=== PATIENT | female | born 1955 | race Caucasian/White ===

== ENCOUNTER 2017-11-30 08:20 | Outpatient (CLI) | payer MEDICAID ==
[2017-11-30 12:18] LABS: ALKALINE PHOSPHATASE 91 IU/L (42-121); ALT ALANINE AMINOTRANSFERASE 16 IU/L (10-60); AST ASPARTATE AMINOTRANSFERASE 34 IU/L (10-42); BILIRUBIN,TOTAL 0.9 mg/dL (0.2-1.0); BUN - BLOOD UREA NITROGEN 6 mg/dL (6-20); CALCIUM 9.3 mg/dL (8.5-10.3); CARBON DIOXIDE - CO2 27 mmol/L (21-32); CHLORIDE 94 mmol/L (101-111); CHOL/HDL RATIO 1.8 (<4.4); CHOLESTEROL 218 mg/dL; CREATININE 0.6 mg/dL (0.4-1.0); GFR - MDRD 102 (>89); GLUCOSE 112 mg/dL (70-100); HDL CHOLESTEROL 118 mg/dL; LDL CHOLESTEROL,CALCULATED 91 mg/dL; LDL/HDL RATIO 0.8 (<4.4); SODIUM 131 mmol/L (135-145); TOTAL PROTEIN 7.9 g/dL (6.7-8.2); VLDL CHOLESTEROL 9 mg/dL
[2017-11-30 12:27] LABS: HEMOGLOBIN A1C 0.49 g/dL; HEMOGLOBIN A1C % 4.8 % (4.6-6.2)
[2017-12-01 13:32] LABS: HEPATITIS C ANTIBODY NON-REACTIVE (NON-REACTIVE)
== END 2017-11-30 08:21 | disposition home or self-care (01) ==
LOC: LAB.F 08:20
PROVIDERS: ATTEND Nurse Practitioner Family
DX: Z13.1 Encounter for screening for diabetes mellitus (principal); Z13.220 Encounter for screening for lipoid disorders; Z13.29 Encounter for screening for other suspected endocrine disorder; Z78.9 Other specified health status; F17.210 Nicotine dependence, cigarettes, uncomplicated
CPT/HCPCS: 36415; 80053; 80061; 83036; 83721; 84443; 86803

== ENCOUNTER 2017-12-21 14:40 | Outpatient (CLI) | payer MEDICAID | END 2017-12-21 14:41 | disposition home or self-care (01) | LOC: RT.S 14:40 | PROVIDERS: ATTEND Nurse Practitioner Family | DX: R07.89 Other chest pain (principal); I10 Essential (primary) hypertension | CPT/HCPCS: 93005 ==

== ENCOUNTER 2018-01-14 07:34 | Outpatient (CLI) | payer MEDICAID ==
[2018-01-14 17:48] VITALS: BP 134/80
--- NOTE | 2018-01-15 09:17 | CARDIAC PROCEDURE NOTE ---
DATE OF SERVICE: 01/14/2018 ETT Provider: KRISTIN Felipe Patient Name: Lyndsey Alford : 1955 Date of Service: 01/14/2018 PRIMARY CARE PHYSICIAN: KRISTIN Felipe. PROCEDURE: Cardiac treadmill stress test. PROCEDURE SYMPTOMS: Atypical chest pain, Hypertension. CARDIAC RISK FACTORS: Age, Hypertension, Active smoker. CLINICAL HISTORY: A 62-year-old female without known coronary artery disease. She has had no previous cardiac procedures. She has asthma and COPD. She reports having no chest pain since she was seen in the office. She is chronically short of breath with exertion. Initial resting VS: 148/84, HR 118 (at rest), Ht: 61 inches, Wt: 95.6 lbs., BMI 17.9. PROCEDURE AND FINDINGS: Patient identity and date verified. Consent signed. The patient performed treadmill exercise using a Reuben protocol, completing 3 minutes, 46 seconds, and completing an estimated workload of 5.55 metabolic equivalents. Maximal blood pressure during exercise was 132/72, With maximal HR of 176 beats per minute or 110% of maximal predicted heart rate for age. The blood pressure response to exercise was fairly flat. The patient stopped because of getting out of air. She recovered her breath quickly and had no wheezing. The resting ECG demonstrated sinus tachycardia with no abnormalities. Maximum ST-segment depression was less than 0.5 mm and upsloping. There was no ectopy. FINAL IMPRESSIONS: TEST QUALITY: Fair due to exercise artifact. 1. Negative stress electrocardiogram for ischemia by electrocardiographic criteria. 2. Negative stress test clinically for angina. 3. Predicted sedentary exercise time: 5 minutes, 45 seconds. Her Asthma/COPD and resting tachycardia may be limitations. 4. No ectopy. 5. No contra-indication for cataract surgery. 6. The patient has been started on lisinopril, which seems to be doing a good job controlling her blood pressure. cc: Osvaldo Garcias MD TD: 01/14/2018 19:59 MTDD
--- NOTE | 2018-01-15 10:14 | XRAY Report ---
CARDIOVASCULAR TREADMILL TEST There was no imaging performed for this exam. Procedure notes and results available in the EMR. TOMER
== END 2018-01-14 07:35 | disposition home or self-care (01) ==
LOC: DI 07:34
PROVIDERS: ATTEND Nurse Practitioner Family
DX: R07.89 Other chest pain (principal); I10 Essential (primary) hypertension; F17.200 Nicotine dependence, unspecified, uncomplicated
CPT/HCPCS: 93016; 93017; 93018

== ENCOUNTER 2019-01-17 08:00 | Outpatient (CLI) | payer MEDICAID ==
[2019-01-17 10:48] LABS: EOSINOPHILS # (AUTO) 0.1 10^3/uL (0.0-0.7); EOSINOPHILS % (AUTO) 3.2 %; HGB - HEMOGLOBIN 15.1 g/dL (12.0-16.0); LYMPHOCYTES # (AUTO) 1.8 10^3/uL (1.5-3.5); LYMPHOCYTES % (AUTO) 49.4 %; MEAN CORPUSCULAR HEMOGLOBIN 35.7 pg (27.0-31.0); MEAN CORPUSCULAR HGB CONC 34.7 g/dL (32.0-36.0); MEAN PLATELET VOLUME 8.8 fL (7.9-10.8); MONOCYTES # (AUTO) 0.5 10^3/uL (0.0-1.0); MONOCYTES % (AUTO) 12.9 %; NEUTROPHILS # (AUTO) 1.2 10^3/uL (1.5-6.6); NEUTROPHILS % (AUTO) 33.5 %; PLT - PLATELET COUNT 172 10^3/uL (130-450); RED BLOOD COUNT 4.22 10^6/uL (4.20-5.40); RED CELL DISTRIBUTION WIDTH 13.2 % (12.0-15.0); WHITE BLOOD COUNT 3.7 x10^3/uL (4.8-10.8)
[2019-01-17 11:02] LABS: ALBUMIN/GLOBULIN RATIO 1.2 (1.0-2.2); ALKALINE PHOSPHATASE 64 IU/L (42-121); ALT ALANINE AMINOTRANSFERASE 30 IU/L (10-60); AST ASPARTATE AMINOTRANSFERASE 46 IU/L (10-42); BILIRUBIN,TOTAL 1.1 mg/dL (0.2-1.0); BUN - BLOOD UREA NITROGEN 7 mg/dL (6-20); CALCIUM 9.6 mg/dL (8.5-10.3); CARBON DIOXIDE - CO2 29 mmol/L (21-32); CHLORIDE 94 mmol/L (101-111); CHOL/HDL RATIO 1.9 (<4.4); CHOLESTEROL 231 mg/dL; CREATININE 0.5 mg/dL (0.4-1.0); GFR - MDRD 125 (>89); GLUCOSE 104 mg/dL (70-100); HDL CHOLESTEROL 122 mg/dL; LDL CHOLESTEROL,CALCULATED 101 mg/dL; LDL/HDL RATIO 0.8 (<4.4); SODIUM 132 mmol/L (135-145); TOTAL PROTEIN 7.4 g/dL (6.7-8.2); VLDL CHOLESTEROL 8 mg/dL
[2019-01-17 11:26] LABS: HB2 TOTAL 16.3 g/dL; HEMOGLOBIN A1C 0.45 g/dL; HEMOGLOBIN A1C % 4.7 % (4.6-6.2)
== END 2019-01-17 23:59 | disposition home or self-care (01) ==
LOC: LAB.S 08:00
PROVIDERS: ATTEND Nurse Practitioner Family
DX: Z13.220 Encounter for screening for lipoid disorders (principal); Z13.1 Encounter for screening for diabetes mellitus; I10 Essential (primary) hypertension
CPT/HCPCS: 36415; 80050; 80061; 83036; 83721

== ENCOUNTER 2019-03-05 08:53 | Outpatient (CLI) | payer MEDICAID ==
[2019-03-05] MEDS ORDERED: ALBUTEROL NEB 2.5 MG/3 ML INH SCH (09:00)
== END 2019-03-05 08:54 | disposition home or self-care (01) ==
LOC: RT 08:53
PROVIDERS: ATTEND Nurse Practitioner
DX: J44.9 Chronic obstructive pulmonary disease, unspecified (principal)
CPT/HCPCS: 94060; 94729

== ENCOUNTER 2019-08-08 10:52 | Outpatient (CLI) | payer OTHER, MEDICAID ==
--- NOTE | 2019-08-08 12:55 | XRAY Report ---
Reason: COPD, HBP Procedure Date: 08/08/2019 Accession Number: [id number] / [id number] Procedure: XRS - Chest 2 View X-Ray CPT Code: 06226 Final Report FULL RESULT: EXAM: CHEST RADIOGRAPHY EXAM DATE: 08/08/2019 11:00 AM. CLINICAL HISTORY: Chronic obstructive pulmonary disease, high blood pressure. COMPARISON: CHEST 2 VIEW PA/LAT 03/30/2014 11:44 AM. TECHNIQUE: 2 views. FINDINGS: Lungs/Pleura: No focal opacities evident. No pleural effusion. No pneumothorax. High lung volumes are redemonstrated with flattening of diaphragms, suggestive of obstructive lung disease. Mediastinum: Heart and mediastinal contours are unremarkable. Other: None. IMPRESSION: High lung volumes consistent with provided history of COPD. RADIA
== END 2019-08-08 10:53 | disposition home or self-care (01) ==
LOC: DI.S 10:52
DX: R07.9 Chest pain, unspecified (principal)
CPT/HCPCS: 71046

== ENCOUNTER 2019-09-06 13:33 | Outpatient (CLI) | payer OTHER, MEDICAID ==
[2019-09-06] MEDS ORDERED: ALBUTEROL NEB 2.5 MG/3 ML INH ONE (13:58)
== END 2019-09-06 13:34 | disposition home or self-care (01) ==
LOC: RT 13:33
DX: J44.9 Chronic obstructive pulmonary disease, unspecified (principal); R06.02 Shortness of breath; I10 Essential (primary) hypertension
CPT/HCPCS: 94060; 94729

== ENCOUNTER 2020-03-28 08:25 | Outpatient (CLI) | payer OTHER, MEDICAID ==
[2020-03-28 08:51] LABS: BASOPHILS % (AUTO) 0.9 %; EOSINOPHILS % (AUTO) 0.9 %; HGB - HEMOGLOBIN 15.1 g/dL (12.0-16.0); LYMPHOCYTES # (AUTO) 1.6 10^3/uL (1.5-3.5); LYMPHOCYTES % (AUTO) 36.1 %; MEAN CORPUSCULAR HEMOGLOBIN 34.4 pg (27.0-31.0); MEAN CORPUSCULAR HGB CONC 35.9 g/dL (32.0-36.0); MEAN CORPUSCULAR VOLUME 95.9 fL (81.0-99.0); MEAN PLATELET VOLUME 8.9 fL (7.9-10.8); MONOCYTES # (AUTO) 0.4 10^3/uL (0.0-1.0); MONOCYTES % (AUTO) 9.5 %; NEUTROPHILS # (AUTO) 2.4 10^3/uL (1.5-6.6); NEUTROPHILS % (AUTO) 52.2 %; PLT - PLATELET COUNT 211 10^3/uL (130-450); RED BLOOD COUNT 4.39 10^6/uL (4.20-5.40); RED CELL DISTRIBUTION WIDTH 12.8 % (12.0-15.0); WHITE BLOOD COUNT 4.5 x10^3/uL (4.8-10.8)
[2020-03-28 09:49] LABS: ALBUMIN 4.8 g/dL (3.2-5.5); ALBUMIN/GLOBULIN RATIO 1.5 (1.0-2.2); ALKALINE PHOSPHATASE 60 IU/L (42-121); ALT ALANINE AMINOTRANSFERASE 32 IU/L (10-60); AST ASPARTATE AMINOTRANSFERASE 42 IU/L (10-42); BILIRUBIN,TOTAL 1.6 mg/dL (0.2-1.0); BUN - BLOOD UREA NITROGEN 6 mg/dL (6-20); CALCIUM 9.2 mg/dL (8.5-10.3); CARBON DIOXIDE - CO2 25 mmol/L (21-32); CHLORIDE 84 mmol/L (101-111); CHOL/HDL RATIO 1.9 (<4.4); CHOLESTEROL 252 mg/dL; CREATININE 0.5 mg/dL (0.4-1.0); GLUCOSE 111 mg/dL (70-100); HDL CHOLESTEROL 133 mg/dL; LDL CHOLESTEROL,CALCULATED 111 mg/dL; LDL/HDL RATIO 0.8 (<4.4); SODIUM 123 mmol/L (135-145); VLDL CHOLESTEROL 8 mg/dL
[2020-03-28 10:40] LABS: T4 (THYROXINE) 6.92 ug/dL (6.09-12.23)
[2020-03-28 10:43] LABS: THYROID STIMULATING HORMONE 1.66 uIU/mL (0.34-5.60)
[2020-03-28 10:44] LABS: FREE T3 3.47 pg/mL (2.5-3.9)
[2020-03-28 10:45] LABS: FREE T4 (FREE THYROXINE) 0.9 ng/dL (0.58-1.64)
== END 2020-03-28 08:26 | disposition home or self-care (01) ==
LOC: LAB 08:25
PROVIDERS: ATTEND Nurse Practitioner
DX: Z00.00 Encounter for general adult medical examination without abnormal findings (principal); Z12.31 Encounter for screening mammogram for malignant neoplasm of breast
CPT/HCPCS: 36415; 80053; 80061; 83721; 84436; 84439; 84443; 84481; 85025

== ENCOUNTER 2020-05-21 11:24 | Outpatient (CLI) | payer MEDICAID, OTHER ==
[2020-05-21 11:55] LABS: BUN - BLOOD UREA NITROGEN < 5 mg/dL (6-20); CALCIUM 8.7 mg/dL (8.5-10.3); CARBON DIOXIDE - CO2 28 mmol/L (21-32); CHLORIDE 84 mmol/L (101-111); CREATININE 0.5 mg/dL (0.4-1.0); GLUCOSE 100 mg/dL (70-100); MAGNESIUM 1.7 mg/dL (1.7-2.8); SODIUM 123 mmol/L (135-145)
--- NOTE | 2020-05-21 14:14 | XRAY Report ---
PROCEDURE: Chest 2 View X-Ray INDICATIONS: PNEUMONIA/LAB DRAW TECHNIQUE: 2 view(s) of the chest. COMPARISON: None. FINDINGS: Surgical changes and devices: None. Lungs and pleura: There is persistent although slightly improved appearance of right lobe pneumonia p revious identified on 04/09/2020. There is been interval development of a right apical lucency, previou sly appearing as confluent opacity. Lung markings within this region are not definitively identified. Mediastinum: Mediastinal contours are normal. Heart size is normal. Bones and chest wall: No suspicious bony abnormalities. Soft tissues appear unremarkable. IMPRESSION: Markedly persistent although slightly improved appearance of right lobe opacities consis tent with known pneumonia. Interval development of right apical lucency. This can represent a superim posed area of hydropneumothorax, given lack of readily identified pulmonary parenchymal markings vers us apical clearing. CT chest with contrast is recommended for further evaluation. The above findings were discussed with KRISTIN Sharp on 05/21/2020 at 2:10 PM. Reviewed by: Salud Ramires MD on 05/21/2020 2:13 PM PDT Approved by: Salud Ramires MD on 05/21/2020 2:13 PM PDT Station ID: [id number]
== END 2020-05-21 11:25 | disposition home or self-care (01) ==
LOC: LAB 11:24 → DI 11:25
PROVIDERS: ATTEND Nurse Practitioner
DX: J18.9 Pneumonia, unspecified organism (principal); R91.8 Other nonspecific abnormal finding of lung field; I10 Essential (primary) hypertension; Z72.0 Tobacco use; J45.909 Unspecified asthma, uncomplicated; Z71.6 Tobacco abuse counseling; J44.9 Chronic obstructive pulmonary disease, unspecified; E87.1 Hypo-osmolality and hyponatremia
CPT/HCPCS: 36415; 71046; 80048; 83735

== ENCOUNTER 2020-05-21 18:04 | Emergency (ER) | payer MEDICAID ==
--- NOTE | 2020-05-21 18:28 | ED Physician Documentation ---
History of Present Illness - Stated complaint Stated Complaint: SOA - Chief complaint Chief Complaint: Resp - History obtained from History obtained from: Patient, Family - History of Present Illness Timing: Today Pain level max: 0 Pain level now: 0 - Additonal information Additional information: patient was treated for pneumonia 3 weeks ago, still not feeling well. Had an outpatient CXR today, possible hydropneumothorax, sent here for CT scan. Patient was initially treated with cefdinir and azithromycin. She was changed to Levaquin for 2 weeks and finished this a few days ago. Today was for follow-up x-ray as she is still having difficulty breathing. She still smokes. Review of Systems Ten Systems: 10 systems reviewed and negative Constitutional: denies: Fever, Chills Throat: denies: Sore throat Cardiac: denies: Chest pain / pressure Respiratory: denies: Cough GI: denies: Abdominal Pain, Nausea, Vomiting, Diarrhea : denies: Dysuria Musculoskeletal: denies: Neck pain, Back pain Neurologic: denies: Headache PD PAST MEDICAL HISTORY - Past Medical History Past Medical History: Yes Cardiovascular: Hypertension Respiratory: Asthma, COPD Neuro: None Endocrine/Autoimmune: None GI: None ECONOMIST RESEARCH ASSISTANT: None : None HEENT: Other Psych: None Musculoskeletal: None Derm: Eczema, Psoriasis - Past Surgical History Past Surgical History: Yes /ECONOMIST RESEARCH ASSISTANT: Tubal ligation - Present Medications Home Medications: Ambulatory Orders Medication Instructions Recorded Confirmed Azithromycin 1 tab PO DAILY #4 tablet 04/29/20 Benzonatate [Tessalon Perle] 100 - 200 mg PO TID PRN #30 capsule 04/29/20 Cefdinir 300 mg PO BID #20 capsule 04/29/20 predniSONE [Deltasone] 20 mg PO [id number] #21 tab 04/29/20 - Allergies Allergies/Adverse Reactions: Allergies Allergy/AdvReac Type Severity Reaction Status Date / Time Penicillins Allergy Unknown Verified 05/21/20 18:14 - Social History Does the pt smoke?: Yes Smoking Status: Current every day smoker Does the pt drink ETOH?: Yes ETOH Use: Wine Does the pt have substance abuse?: Yes Substance Use and Type: Marijuana - Immunizations Immunizations are current?: Yes PD ED PE NORMAL - Vitals Vital signs reviewed: Yes - General General: Alert and oriented X 3, Other (Thin female) - HEENT HEENT: Moist mucous membranes - Neck Neck: Supple, no meningeal sign - Cardiac Cardiac: RRR - Respiratory Respiratory: No respiratory distress, Other (Diminished breath sounds throughout) - Abdomen Abdomen: Soft, Non tender, Non distended - Back Back: No CVA TTP, No spinal TTP - Derm Derm: Warm and dry, No rash - Extremities Extremities: No edema - Neuro Neuro: Alert and oriented X 3 - Psych Psych: Normal mood, Normal affect Results - Vitals Vitals: Vital Signs - 24 hr 05/21/20 05/21/20 05/21/20 18:09 18:20 19:18 Temperature 36.9 C 36.9 C Heart Rate 99 99 94 Respiratory 28 H 20 25 H Rate Blood Pressure 134/88 H 134/88 H 138/93 H O2 Saturation 93 93 98 05/21/20 20:33 Temperature Heart Rate 104 H Respiratory 27 H Rate Blood Pressure 123/87 H O2 Saturation 95 Oxygen O2 Source Room air - Labs Labs: Laboratory Tests 05/21/20 05/21/20 18:38 18:38 WBC 4.6 L RBC 3.48 L Hgb 11.6 L Hct 32.2 L MCV 92.5 MCH 33.3 H MCHC 36.0 RDW 13.2 Plt Count 305 MPV 9.0 Neut # (Auto) 2.2 Lymph # (Auto) 1.6 [place] # (Auto) 0.6 Eos # (Auto) 0.1 Baso # (Auto) 0.1 Absolute Nucleated RBC 0.00 Nucleated RBC % 0.0 Sodium 123 L Potassium 4.0 Chloride 86 L Carbon Dioxide 23 Anion Gap 14.0 H BUN 5 L Creatinine 0.5 Estimated GFR (MDRD) 125 Glucose 90 Calcium 8.6 Total Bilirubin 0.4 AST 43 H ALT 28 Alkaline Phosphatase 98 Total Protein 6.4 L Albumin 2.9 L Globulin 3.5 Albumin/Globulin Ratio 0.8 L Lipase 37 - Rads (name of study) CT chest Radiology: Prelim report reviewed, EMP read contemporaneously, See rad report PD MEDICAL DECISION MAKING - ED course Complexity details: reviewed results, re-evaluated patient, considered differential, d/w patient ED course: 65-year-old female with what appears to be a new diagnosis of lung cancer with nearly innumerable metastatic masses. She is having a postobstructive pneumonia from this as well. She has empyema as well. We do not have interventional radiology or pulmonology here and she will need transfer. Spoke with Dr. Santiago, hospitalist at [facility] who graciously except in transfer. COBRA forms completed. Also spoke with oncology. Large right hilar and mediastinal mass with heterogenous enhancement, almost certainly a large malignancy, which invades/encases numerous right upper lobe and right middle lobe airways producing postobstructive pneumonia throughout most of the right upper lobe and some of the right middle lobe. Fluid collection in the right apical pleural space (empyema) adjacent to the pneumonia, measuring up to 6 cm. Nearly innumerable metastatic masses. Departure - Departure Disposition: 02 Transfer Acute Care Hosp Clinical Impression: Empyema Metastatic lung cancer (metastasis from lung to other site) Qualifiers: Laterality: right Qualified Code(s): C34.91 - Malignant neoplasm of unspecified part of right bronchus or lung Pneumonia Qualifiers: Pneumonia type: due to unspecified organism Laterality: right Lung location: upper lobe of lung Qualified Code(s): J18.9 - Pneumonia, unspecified organism Condition: Stable
[2020-05-21 18:46] LABS: BASOPHILS # (AUTO) 0.1 10^3/uL (0.0-0.1); BASOPHILS % (AUTO) 1.1 %; EOSINOPHILS # (AUTO) 0.1 10^3/uL (0.0-0.7); EOSINOPHILS % (AUTO) 1.3 %; HGB - HEMOGLOBIN 11.6 g/dL (12.0-16.0); LYMPHOCYTES # (AUTO) 1.6 10^3/uL (1.5-3.5); LYMPHOCYTES % (AUTO) 34.9 %; MEAN CORPUSCULAR HEMOGLOBIN 33.3 pg (27.0-31.0); MEAN CORPUSCULAR VOLUME 92.5 fL (81.0-99.0); MONOCYTES # (AUTO) 0.6 10^3/uL (0.0-1.0); MONOCYTES % (AUTO) 13.8 %; NEUTROPHILS # (AUTO) 2.2 10^3/uL (1.5-6.6); NEUTROPHILS % (AUTO) 48.5 %; PLT - PLATELET COUNT 305 10^3/uL (130-450); RED BLOOD COUNT 3.48 10^6/uL (4.20-5.40); RED CELL DISTRIBUTION WIDTH 13.2 % (12.0-15.0); WHITE BLOOD COUNT 4.6 x10^3/uL (4.8-10.8)
[2020-05-21] MEDS ORDERED: IOVERSOL 320 100 ML VIAL IVP ONE ×2 (18:48→19:09)
[2020-05-21 18:58] LABS: ALBUMIN 2.9 g/dL (3.2-5.5); ALBUMIN/GLOBULIN RATIO 0.8 (1.0-2.2); BILIRUBIN,TOTAL 0.4 mg/dL (0.2-1.0); CALCIUM 8.6 mg/dL (8.5-10.3); CREATININE 0.5 mg/dL (0.4-1.0); TOTAL PROTEIN 6.4 g/dL (6.7-8.2)
[2020-05-21] MEDS ORDERED: LEVALBUTEROL 1.25 MG/3 ML NEB INH STA (19:16)
--- NOTE | 2020-05-21 19:23 | CT Report ---
PROCEDURE: CHEST W INDICATIONS: Abnormal cxr CONTRAST: IV CONTRAST: Optiray 320 ml: 80 PO CONTRAST: *NO PO CONTRAST TECHNIQUE: After the administration of intravenous contrast, 5 mm thick sections acquired from the pulmonary api rashaad to the posterior costophrenic angles. 7 mm thick coronal MIP reformats were acquired. For radia tion dose reduction, the following was used: automated exposure control, adjustment of mA and/or kV according to patient size. COMPARISON: None. FINDINGS: Image quality: Excellent. Large right hilar and mediastinal mass with heterogenous and enhancement suggestive of centrally necr otic neoplasm. The mass encases and narrows numerous airways and vessels leading into the right upper and middle lobes. As a result there is contrast patchy consolidation throughout most of the right up per lobe and some of the right middle lobe, almost certainly postobstructive pneumonia. Large peripherally enhancing right apical fluid collection likely representing empyema given the faith cent presumably infectious consolidation. This measures approximately 5 x 6 in meters maximum axial d imension and 4 7 m craniocaudal. The collection contains thick aerated debris with a fluid level and has a thick rind of surrounding enhancement, further supporting likely infected status. Nearly innumerable hypodense liver lesions of intermediate density with peripheral enhancement, almos t certainly metastatic. IMPRESSION: Large right hilar and mediastinal mass with heterogenous enhancement, almost certainly a large malign derek, which invades/encases numerous right upper lobe and right middle lobe airways producing postobs tructive pneumonia throughout most of the right upper lobe and some of the right middle lobe. Fluid collection in the right apical pleural space (empyema) adjacent to the pneumonia, measuring up to 6 cm. Nearly innumerable metastatic masses. Reviewed by: Serge Nova MD on 05/21/2020 7:21 PM PDT Approved by: Serge Nova MD on 05/21/2020 7:21 PM PDT Station ID: [id number]
[2020-05-21] MEDS ORDERED: levoFLOXacin 750 MG/150 ML 750 MG/150 ML BAG IV STA (19:59)
[2020-05-21] MEDS ORDERED: ONDANSETRON 4 MG/2 ML VIAL IVP STA (21:23)
[2020-05-21] MEDS ORDERED: LORazepam 2 MG/ML VIAL IVP STA (21:25)
[2020-05-21 22:03] VITALS: BP 114/97
== END 2020-05-21 22:08 | disposition short-term general hospital (02) ==
LOC: ED 18:04
DX: C34.81 Malignant neoplasm of overlapping sites of right bronchus and lung (principal); J86.9 Pyothorax without fistula; J18.8 Other pneumonia, unspecified organism; J44.9 Chronic obstructive pulmonary disease, unspecified; F17.200 Nicotine dependence, unspecified, uncomplicated; I10 Essential (primary) hypertension; E87.1 Hypo-osmolality and hyponatremia; R91.8 Other nonspecific abnormal finding of lung field
CPT/HCPCS: 36415; 71046; 71260; 80048; 80053; 83690; 83735; 85025; 94640; 96365; 96366; 96375; 99284; 99285; J2060; Q9967

== ENCOUNTER 2020-05-21 22:08 | Outpatient (CLI) | payer MEDICAID | END 2020-05-21 22:09 | disposition short-term general hospital (02) | LOC: EMS 22:08 | PROVIDERS: ATTEND Surgery | DX: R06.09 Other forms of dyspnea (principal); R19.8 Other specified symptoms and signs involving the digestive system and abdomen | CPT/HCPCS: A0425; A0426 ==